=== PATIENT | female | born 1960 | race Caucasian/White ===

== ENCOUNTER 2020-12-14 08:22 | Outpatient (CLI) | payer BC, SELFPAY ==
--- NOTE | ~2020-12-14 | DEXA_ITS ---
Bone Density Report Name: Monet Ulloa Age: 60 Sex: Female Ethnicity: White Date of : 1960 Indication: postmenopausal; hysterectomy; Referring Provider: ELLIOTT, SÁNCHEZ Study: Bone densitometry was performed. Exam Date: December 14, 2020 Accession number: [id number] Bone Density: Region BMD T-score Z-score Classification AP Spine (L1-L4) 1.065 0.2 1.7 Normal Femoral Neck (Left) 0.757 -0.8 0.6 Normal Total Hip (Left) 0.932 -0.1 1.0 Normal Total Hip Bilateral Avg 0.956 0.1 1.2 Normal Femoral Neck (Right) 0.760 -0.8 0.6 Normal Total Hip (Right) 0.979 0.3 1.4 Normal World Health Organization criteria for BMD impression classify patients as: Normal (T-score at or above -1.0), Osteopenia (T-score between -1.0 and -2.5), or Osteoporosis (T-score at or below -2.5). 10-year Fracture Risk: FRAX not reported because: All T-scores for Spine Total, Hip Total, Femoral Neck at or above -1.0 Clinical Information Provided by Patient: Has used the following medications: HRT (i.e. estrogen/hormone therapy), Vitamin D, Calcium Has the following medical conditions: Hysterectomy Patient maximum height was 65 Menopause Age: 47 Drinks caffeinated beverages Onset of menses at age 11 Number of children 1 Impression: The patient has normal bone mass. Discussion: BONE DENSITY IS ABOVE THE MINIMUM DESIRABLE LEVEL AT ALL SKELETAL SITES TESTED. This patient?s bone mineral density is above the minimum desirable level (T-score -1.0 or better) at all sites measured. The patient should follow a healthful lifestyle (good nutrition with adequate calcium and vitamin D, and appropriate weight-bearing exercise). Follow-Up: Consider repeating this study in 5 years or sooner if there is some new clinical indication. Reported by: MAYRA on 12/14/2020 8:59:00 AM. Reviewed, dictated and finalized at location ATia MOHAN
--- NOTE | ~2020-12-14 | MM_ITS ---
EXAMINATION: MM screening danielle BI w milan HISTORY: Screening TECHNIQUE: Craniocaudal and mediolateral oblique 3-D tomosynthesis images were obtained and synthetic 2-D images were generated. CAD analysis was submitted and interpreted. COMPARISON: No prior mammogram is available for comparison at this institution. BREAST PARENCHYMAL COMPOSITION: The breasts are heterogeneously dense, which may obscure small masses . FINDINGS: There are bilateral subpectoral saline implants. There is no evidence of suspicious mass, c alcification, or architectural distortion to suggest malignancy in either breast. There has been no s uspicious interval change. IMPRESSION: 1. No mammographic evidence of malignancy. 2. Recommend routine screening mammography in one year. BI-RADS Category 1: Negative Reviewed, dictated and finalized at location A.
== END 2020-12-14 08:23 | disposition home or self-care (01) ==
PROVIDERS: PCP Family Medicine; Visit Provider Physician Assistant
DX: Z12.31 Encounter for screening mammogram for malignant neoplasm of breast (principal); Z78.0 Asymptomatic menopausal state
CPT/HCPCS: 77063; 77067; 77080

== ENCOUNTER 2023-06-25 13:56 | Outpatient (CLI) | payer BC, SELFPAY ==
--- NOTE | ~2023-06-25 | DEXA_ITS ---
Bone Density Report Name: GILDA MARIN Age: 62 Sex: Female Ethnicity: White Date of : 1960 Indication: postmenopausal; screening for osteoporosis; hysterectomy; Referring Provider: ELLIOTT, SÁNCHEZ Study: Bone densitometry was performed. Exam Date: June 25, 2023 Accession number: [id number] Bone Density: Region BMD T-score Z-score Classification AP Spine(L1-L4) 1.021 -0.2 1.5 Normal Femoral Neck (Left) 0.708 -1.3 0.2 Osteopenia Total Hip (Left) 0.934 -0.1 1.1 Normal Femoral Neck (Right) 0.755 -0.8 0.7 Normal Total Hip (Right) 0.994 0.4 1.6 Normal Total Hip Mean 0.964 0.2 1.4 Normal World Health Organization criteria for BMD impression classify patients as: Normal (T-score at or above -1.0), Osteopenia (T-score between -1.0 and -2.5), or Osteoporosis (T-score at or below -2.5). 10-year Fracture Risk(1): Major Osteoporotic Fracture 8.3% Hip Fracture 0.7% Reported Risk Factors: [place] (), Neck BMD=0.708, BMI=28.6 (1) FRAX(R) Version 3.08. Fracture probability calculated for an untreated patient. Fracture probability may be lower if the patient has received treatment. Previous Exams: Region Exam Age BMD T-score BMD Change BMD Change Date g/cm2 vs Baseline vs Previous AP Spine (L1-L4) 06/25/2023 62 1.021 -0.2 -0.045 (-4.2%) -0.045 (-4.2%) 12/14/2020 60 1.065 0.2 Total Hip(Left) 06/25/2023 62 0.934 -0.1 0.002 (0.2%)# 0.002 (0.2%)# 12/14/2020 60 0.932 -0.1 Total Hip(Right) 06/25/2023 62 0.994 0.4 0.015 (1.5%)# 0.015 (1.5%)# 12/14/2020 60 0.979 0.3 *Denotes significance at 95% confidence level, LSC for AP Spine = 0.022 g/cm2, LSC for Total Hip = 0.027 g/cm2 # Denotes dissimilar scan types or analysis methods Clinical Information Provided by Patient: Has used the following medications: Vitamin D, Calcium Has the following medical conditions: Hysterectomy Patient maximum height was 65.0 Menopause Age: 47 No regular weight bearing exercise Drinks caffeinated beverages Onset of menses at age 10 Number of children 1 Impression: The patient has low bone mass, based on the Left Femoral Neck T-score. The patient has an estimated ten-year risk of hip fracture of 0.7% and an estimated ten-year risk of major fracture of 8.3%, based on the WHO FRAX algorithm. No significant bone loss was observed. Discussion: BONE DENSITY IS LOW AT ONE OR MORE SKELETAL SITES. This pa
== END 2023-06-25 13:57 | disposition home or self-care (01) ==
LOC: ANHIMG 14:01
PROVIDERS: PCP Physician Assistant; Visit Provider Physician Assistant
DX: Z78.0 Asymptomatic menopausal state (principal); M85.852 Other specified disorders of bone density and structure, left thigh
CPT/HCPCS: 77080

== ENCOUNTER 2025-06-26 08:16 | Outpatient (CLI) | payer MEDICARE, OTHER, SELFPAY ==
--- NOTE | ~2025-06-26 | US_ITS ---
US right upper quadrant Indication: RUQ pain Comparison: None Technique: Villalba-scale and color Doppler images were obtained. Findings: LIVER: Unremarkable, liver contours intact, no lesions. Normal echogenicity. . GALLBLADDER/BILIARY: Unremarkable.No cholelithiais, wall thickening or pericholecystic fluid. No biliary dilatation. CBD 4 mm. Bland sign negative. PANCREAS: Unremarkable. Visualized aorta appears unremarkable. Right Kidney: The right kidney was not imaged. Impression: No acute abnormality. Reviewed, dictated and finalized at location P. [employer] Impression: No acute abnormality.
== END 2025-06-26 08:17 | disposition home or self-care (01) ==
LOC: MICIMG 08:17
PROVIDERS: PCP Physician Assistant; Visit Provider Physician Assistant
DX: R10.11 Right upper quadrant pain (principal)
CPT/HCPCS: 76705